=== PATIENT | male | born 1955 | race Caucasian/White ===

== ENCOUNTER 2023-02-20 01:19 | Emergency (ER) | payer OTHER, SELFPAY ==
[2023-02-20] VITALS (9 sets, daily range): BP systolic 117–180; BP diastolic 75–98; PULSE 93–106; RESP 15–20; TEMP 35.9–36.6; O2SAT 94–100
--- NOTE | ~2023-02-20 | CT_ITS ---
EXAMINATION: CT abdomen pelvis wo con DATE: 02/20/2023 03:47 INDICATION: Left flank pain. Kidney stone. TECHNIQUE: Computed tomography (CT) of the abdomen and pelvis was performed without intravenous contr ast. Automated exposure control and iterative reconstruction technique were employed. The dose-length product was 1205.14 mGy-cm. COMPARISON: None. FINDINGS: The visualized portions of the lung bases demonstrate calcified left lung nodules, consiste nt with old granulomatous disease. No pleural effusion. The heart size is normal. No pericardial effu isi. Calcifications in the liver and spleen are consistent with old granulomatous disease. There is diffuse hepatic steatosis. The gallbladder, pancreas, and adrenal glands are normal. There is a 1 mm stone in right kidney. There is a 15 mm cyst in right kidney. There is a 2 mm stone in distal left ur eter. There is mild left hydronephrosis and hydroureter. There is a 2 mm stone in left kidney. There is a 2.8 cm cyst in left kidney. There is prominent fat in left inguinal canal that may be a hernia. There are no dilated loops of bowel. The appendix is normal. There are no pathologically enlarged lym ph nodes. There is no free intraperitoneal fluid. There is mild thoracic and lumbar spondylosis. IMPRESSION: 1. 2 mm stone in distal left ureter with mild left hydronephrosis and hydroureter. 2. Small bilateral nonobstructing kidney stones. Reviewed, dictated and finalized at location E. IMPRESSION: 1. 2 mm stone in distal left ureter with mild left hydronephrosis and hydrouret er. 2. Small bilateral nonobstructing kidney stones.
[2023-02-20 01:46] LABS: Basophils Absolute Auto 0.1 K/mm3 (0.0-0.1); Basophils Percent Auto 0.4 % (0.2-1.2); Eosinophils Absolute Auto 0.1 K/mm3 (0-0.3); Eosinophils Percent Auto 0.7 % (0-4.4); Hematocrit 44.5 % (42.0-52.0); Hemoglobin 15.6 g/dL (14.0-18.0); Immature Granulocyte Absolute 0.06 K/mm3 (0.00-0.031); Immature Granulocyte Percent A 0.5 % (0-0.5); Lymphocytes Absolute Auto 2.17 K/mm3 (0.9-3.2); Lymphocytes Percent Auto 17.9 % (18.3-44.2); Mean Corpuscular HGB Conc 35.1 g/dl (32-36); Mean Corpuscular Hemoglobin 30.8 pg (26-34); Mean Corpuscular Volume 87.8 fl (80-100); Monocytes Absolute Auto 1.2 K/mm3 (0.1-0.6); Monocytes Percent Auto 9.8 % (2.6-8.5); Neutrophils Absolute Auto 8.5 K/mm3 (1.3-6.7); Neutrophils Percent Auto 70.7 % (45.5-73.1); Platelet Count Result 211 k/mm3 (150-375); Red Blood Count 5.07 M/mm3 (4.6-6.20); Red Cell Distribution Width 12.9 % (11.5-14.5); White Blood Count 12.1 K/mm3 (4.5-10.0)
[2023-02-20 01:54] LABS: Appearance Urine Clear (Clear); Bacteria Urine None Seen /hpf; Bilirubin Urine Negative (Negative); Blood Urine Trace (Negative); Color Urine Yellow (Yellow); Glucose Urine UA Negative (Negative); Ketones Urine Trace mg/dL (Negative); Leukocyte Esterase Ur Negative LEU/UL (Negative); Nitrate Urine Negative (Negative); Non Pathogenic Casts 0-2; Protein Urine Negative (Negative); RBC Urine 0-2 /hpf (0-2); Specific Grav Ur 1.018 (1.001-1.035); Squamous Epithelial Cell Urine None seen /hpf (Few); Urobilinogen Urine 0.2 mg/dL (<2.0); WBC Urine 0-5 /hpf; pH Urine 5.5 (5.0-9.0)
[2023-02-20 02:09] LABS: Add Urine Microscopic? NO
[2023-02-20 02:28] LABS: Alanine Aminotransferase 36 U/L (6-50); Albumin Level 4.5 g/dL (3.5-5.1); Alkaline Phosphatase 83 U/L (38-126); Anion Gap 11 mmol/L (8-16); Aspartate Amino Transferase 30 U/L (17-59); Bilirubin,Total 0.8 mg/dL (0.2-1.3); Blood Urea Nitrogen 23 mg/dL (9-20); Calcium 9.5 mg/dL (8.4-10.2); Carbon Dioxide 23 mmol/L (22-30); Chloride 99 mmol/L (98-107); Estimated CRCL calculation 56 ml/min; Estimated Glomerular Filt Rate 55; Glucose 144 mg/dL (65-110); Potassium 4.1 mmol/L (3.4-5.0); Sodium 133 mmol/L (137-145)
--- NOTE | 2023-02-20 06:15 | ED.MALEGU ---
HPI - Male Genitourinary General Chief complaint: Urogenital-Male Stated complaint: junaid stone Time Seen by Provider: 02/20/23 05:45 History of Present Illness HPI Narrative: This is a 67-year-old male with past history of kidney stone, who presents to the emergency department complaining of left-sided abdominal pain and low back pain. He states he was recently diagnosed with kidney stone and started on Flomax but had not have pain. He developed sharp left flank and left abdominal pain rated 6/10 yesterday, worsening last night. Related Data Allergies Allergy/AdvReac Type Severity Reaction Status Date / Time No Known Allergies Allergy Unverified 05/09/18 09:31 Review of Systems Review of Systems: CONSTITUTIONAL: Denies fever, chills, or sweats. CARDIOVASCULAR: Denies chest pain, palpitations, or edema. RESPIRATORY: Denies cough or dyspnea. GASTROINTESTINAL: Left-sided abdominal pain and left flank pain denies nausea, vomiting, or diarrhea. GENITOURINARY: Hematuria denies dysuria SKIN: Denies rash or itching. MUSCULOSKELETAL: Denies back pain, joint pain, or myalgia. NEUROLOGIC: Denies headache, numbness, dizziness, or weakness. PSYCHIATRIC: Denies anxiety or depression. [facility] Past Medical History Medical History Kidney stones Exam Narrative: GENERAL: Well-appearing, well-nourished, and in no acute distress. HEAD: Normocephalic, atraumatic. EYES: PERRLA and EOMI. CHEST: Clear to auscultation. No respiratory distress. No wheezes rales or rhonchi HEART: Regular rate and rhythm. No murmur heard. Normal peripheral pulses. ABDOMEN: Soft, mild tenderness to palpation in the left upper quadrant, nondistended, normal active bowel sounds. Mild tenderness in the left CVA no tenderness in the right CVA EXTREMITIES: Normal range of motion. No edema. SKIN: Warm, dry, no rash. NEURO: No focal deficits. Alert and oriented x3. PSYCH: Normal mood and affect. Course Course Emergency Course: 06:15 - CT demonstrates a left 2mm stone. UA not concerning for UTI. The patient has had some difficulty making an appointment with urology as referred by his primary care doctor. Will provide alternative referrals, pain and nausea medications. Discussed return and emergency precautions including signs/symptoms of acute abdomen and sepsis. The patient voiced understanding and is comfortable with the plan. All questions answered to his satisfaction. Vital Signs Vital signs: Vital Signs Temperature 96.7 F L 02/20/23 01:23 Pulse Rate 106 H 02/20/23 01:23 Respiratory Rate 20 02/20/23 01:23 Blood Pressure 180/85 H 02/20/23 01:23 Pulse Oximetry 97 02/20/23 01:23 Temperature 98 F 02/20/23 06:35 Pulse Rate 93 02/20/23 06:35 Respiratory Rate 15 02/20/23 06:35 Blood Pressure 141/90 H 02/20/23 06:35 Pulse Oximetry 97 02/20/23 06:35 MDM - Male Genitourinary MDM Narrative Medical decision making narrative: Plan: Imaging, pain control, labs, reassess Differential Diagnosis Differential diagnosis: Likely urinary tract infection, acute retention of urine and other (Nephrolithiasis, ureteric lithiasis, metabolic abnormality, other) Lab Data 02/20/23 01:31 02/20/23 01:31 Labs: Lab Results 02/20/23 02/20/23 Range/Units 01:31 01:34 WBC 12.1 H (4.5-10.0) K/mm3 RBC 5.07 (4.6-6.20) M/mm3 Hgb 15.6 (14.0-18.0) g/dL Hct 44.5 (42.0-52.0) % MCV 87.8 (80-100) fl MCH 30.8 (26-34) pg MCHC 35.1 (32-36) g/dl RDW 12.9 (11.5-14.5) % Plt Count 211 (150-375) k/mm3 MPV 9.0 (7.4-10.4) fl Immature Gran % (Auto) 0.5 (0-0.5) % Neut % (Auto) 70.7 (45.5-73.1) % Lymph % (Auto) 17.9 L (18.3-44.2) % Blount % (Auto) 9.8 H (2.6-8.5) % Eos % (Auto) 0.7 (0-4.4) % Baso % (Auto) 0.4 (0.2-1.2) % Lymph # (Auto) 2.17 (0.9-3.2) K/mm3 Blount # (Auto) 1.2 H (0.1-0.6) K/mm3 Eos
[2023-02-20] MEDS: oxyCODONE/ACETAMINOPHEN (*CRX) 5-325 MG TABLET 1 TABLET PO (06:21)
== END 2023-02-20 06:38 | disposition home or self-care (01) ==
PROVIDERS: Emergency Provider Preventive Medicine Aerospace Medicine; PCP Internal Medicine
DX: N13.2 Hydronephrosis with renal and ureteral calculous obstruction (principal)
CPT/HCPCS: 36415; 74176; 80053; 81003; 85025; 99284; A9270

== ENCOUNTER 2023-02-25 10:32 | Outpatient (CLI) | payer OTHER, SELFPAY ==
--- NOTE | ~2023-02-25 | XR_ITS ---
EXAMINATION: XR abdomen/kub 1V DATE: 02/25/2023 10:53 INDICATION: Left ureteral stone. TECHNIQUE: A supine view of the abdomen on 2 radiographs was obtained. COMPARISON: CT abdomen and pelvis 02/20/2023 FINDINGS: There are no dilated loops of bowel. There are phleboliths in the pelvis. There is a 2 mm s tone in distal left ureter. IMPRESSION: 1. 2 mm stone in distal left ureter. Reviewed, dictated and finalized at location A.
== END 2023-02-25 10:33 | disposition home or self-care (01) ==
PROVIDERS: PCP Internal Medicine
DX: N20.1 Calculus of ureter (principal)
CPT/HCPCS: 74018